=== PATIENT | male | born 1950 | race Caucasian/White ===

== ENCOUNTER 2019-12-10 14:28 | Outpatient (CLI) | payer MEDICARE, OTHER, SELFPAY ==
--- NOTE | 2019-12-10 14:32 | ECG_ITS ---
Measurements Intervals [place] Rate: 81 P: 199 MT: 206 QRS: 33 QRSD: 127 T: 32 QT: 410 QTc: 476 Interpretive Statements ELECTRONIC ATRIAL PACEMAKER INTRAVENTRICULAR CONDUCTION DELAY POOR R WAVE PROGRESSION, ANTERIOR LEADS BORDERLINE ST-T WAVE ABNORMALITY- INF/LAT LEADS BASELINE ARTIFACT- V6 BORDERLINE ECG Electronically Signed On 12-10-2019 14:56:49 CDT by Vel Jacobson D.O.
[2019-12-10 15:10] LABS: Blood Urea Nitrogen 24 mg/dL (9-20); Calcium 8.5 mg/dL (8.4-10.2); Carbon Dioxide 25 mmol/L (22-30); Chloride 105 mmol/L (98-107); Estimated Glomerular Filt Rate 40; Glucose 117 mg/dL (75-110); Potassium 4.3 mmol/L (3.4-5.0); Sodium 138 mmol/L (137-145)
== END 2019-12-10 14:29 | disposition home or self-care (01) ==
PROVIDERS: Anesthesiology; PCP Family Medicine; Visit Provider Urology
DX: N40.0 Benign prostatic hyperplasia without lower urinary tract symptoms (principal); Z95.0 Presence of cardiac pacemaker; Z79.899 Other long term (current) drug therapy
CPT/HCPCS: 36415; 80048; 87077; 87086; 87088; 87186; 93005

== ENCOUNTER 2019-12-16 00:07 | Outpatient (CLI) | payer MEDICARE, OTHER, SELFPAY ==
[2019-12-16 15:57] LABS: SARS-CoV-2 RNA PCR Negative
== END 2019-12-16 00:08 | disposition home or self-care (01) ==
LOC: ANHCOVIDDT 00:07
PROVIDERS: Visit Provider Urology
DX: Z01.818 Encounter for other preprocedural examination (principal); Z20.828 Contact with and (suspected) exposure to other viral communicable diseases
CPT/HCPCS: 87635; C9803; U0003

== ENCOUNTER 2019-12-30 00:08 | Outpatient (CLI) | payer MEDICARE, OTHER, SELFPAY ==
[2019-12-30 17:13] LABS: SARS-CoV-2 RNA PCR Negative
== END 2019-12-30 00:09 | disposition home or self-care (01) ==
LOC: ANHCOVIDDT 00:08
PROVIDERS: Visit Provider Urology
DX: Z20.828 Contact with and (suspected) exposure to other viral communicable diseases (principal); Z11.59 Encounter for screening for other viral diseases
CPT/HCPCS: 87635; C9803; U0003

== ENCOUNTER 2020-01-01 00:53 | Day surgery (SDC) | payer MEDICARE, OTHER, SELFPAY ==
[2019-12-10 08:24] VITALS: BMI 34.7
--- NOTE | 2019-12-25 12:59 | PC.NURSE ---
PT.STATES NO CHANGE IN HEALTH HX FROM 12/09/2019
--- NOTE | 2020-01-01 09:20 | WPDANESEPPF ---
Anes - Initial Pre Proc Eval Procedure: Operation Date: 01/01/20 12:00 Proposed Procedures p Urolift - Librado Spicer MD Date/Time: 01/01/20 09:20 Surgeon: Librado Spicer MD Pre Op Diagnosis: BPH Patient Data Age: 69 Gender: M Height: 1.75 m Weight: 106.59 kg Allergies Allergy/AdvReac Type Severity Reaction Status Date / Time No Known Allergies Allergy Verified 12/10/19 08:20 Home Medications Medication Instructions Recorded Confirmed Type amiodarone 200 mg PO DAILY 12/10/19 01/01/20 History apixaban [Eliquis] 2.5 mg PO BID 12/10/19 01/01/20 History furosemide 40 mg PO BID 12/10/19 01/01/20 History potassium chloride [Klor-Con M20] 20 meq PO BID 12/10/19 01/01/20 History sacubitril-valsartan [Entresto] 1 tablet PO BID 12/10/19 01/01/20 History spironolactone 25 mg PO DAILY 12/10/19 01/01/20 History tamsulosin 0.4 mg PO DAILY 12/10/19 01/01/20 History Patient hx anesthesia problems: none Family hx anesthesia problems: none PMFSH Past Medical History Medical History (Updated 01/01/20 @ 09:23 by Jovany Kelsey MD) BPH (benign prostatic hyperplasia) CAD (coronary artery disease) CKD (chronic kidney disease) stage 3, GFR 30-59 ml/min HTN (hypertension) Obesity Surgical History Surgical History (Updated 01/01/20 @ 09:22 by Jovany Kelsey MD) Hx of coronary artery bypass graft Mitral valve replaced PORCINE MITRAL VALVE S/P internal cardiac defibrillator procedure Social History Social History Gender identity (if verbalized by the patient): Male Anes - Eval Final PreProcedure Day of Procedure 01/01/20 09:20 Patient weight: obese Heart: regular rate and rhythm Lungs: clear to auscultation and normal air movement Airway: Mallampati scale class II Neurological: alert and oriented Last oral intake: >/= 8 hours ASA classification: III Emergent: no Anesthetic plan: proceed Anesthesia type and monitoring: general GIVS Informed Consent: The patient's anesthetic plan and its attendant risks and benefits were discussed with the patient/family/POA. Questions were solicited and answers provided to the satisfaction of the patient/family/POA.
[2020-01-01 10:53] VITALS: BP 126/97; PULSE 72; RESP 20; TEMP 36.8; O2SAT 97
[2020-01-01] MEDS: LACTATED RINGERS 1,000 ML 30 ML IV CONT (12:15)
--- NOTE | 2020-01-01 12:17 | WPDHPUPDATE1 ---
History and Physical Update Update Date/Time: 01/01/20 12:17 History and Physical has been reviewed, including an updated exam of the patient. There are NO changes in the patient's condition. Risks, benefits, and alternatives have been discussed and questions answered. Patient agrees to proceed with procedure.
[2020-01-01] MEDS: ceFAZolin 2 GM/D5W 50 ML 2 GM/50 ML BAG IVPB (12:21)
--- NOTE | 2020-01-01 12:24 | SUR.PREOP ---
FAMILY UPDATE PROVIDED
[2020-01-01] MEDS: LIDOCAINE HCL 2% GEL UROJET 10 ML PKG MUCOUS MEM (12:35)
[2020-01-01 13:02] VITALS: BP 123/75; PULSE 74; RESP 16; O2SAT 96
[2020-01-01 13:30] VITALS: BP 139/88; PULSE 73; RESP 16; O2SAT 97
[2020-01-01 14:00] VITALS: BP 143/90; PULSE 71; RESP 16
--- NOTE | 2020-01-01 22:53 | OP_ITS ---
DATE OF PROCEDURE: 01/01/2020 PREOPERATIVE DIAGNOSIS: Benign prostatic hypertrophy. POSTOPERATIVE DIAGNOSES: 1. Benign prostatic hypertrophy. 2. Fossa navicularis narrowing. PROCEDURES PERFORMED: 1. Cystoscopy. 2. Urethral dilation with Spencer sounds. 3. Prostatic urethral lift (UroLift x5 implants). DESCRIPTION OF PROCEDURE: Informed consent was obtained. The patient was taken to the operating room. He was given preoperative IV antibiotics. He was induced with anesthesia. He was placed in the dorsal lithotomy position. He was prepped and draped in a normal sterile fashion. We then placed a 20-Macedonian UroLift cystoscope. However, there was narrowing of the fossa navicularis. We therefore dilated using Spencer sounds from 16 to 24-Macedonian. At this point, we then inserted the cystoscope with ease through the urethra up to the prostatic urethra that revealed bilobar prostatic hyperplasia and then into the bladder. We then inserted the working element of the UroLift device. Our first treatment site was just proximal to the verumontanum on the left side. We compressed the tissue. We used trigger mechanism in order to deploy the needle and place a capsular tab end. We then moved the scope slowly toward midline keeping pressure and then deflated the urethral tab and sat nicely. We then performed another implant on the contralateral side. We then reinserted the visual obturator and then elected to place 2 additional implants 2.5 cm proximal to the bladder neck given the patient's intraprostatic protrusion of the cystoscopy. At this point, there was additional tissue in the left side, therefore a 5th implant was placed on the left. At this point, we had a nice continuous channel present. The tabs all sat nicely in the urethra with compression of the prostatic tissue. There was some bleeding from the prostate. We then exchanged to a flexible cystoscope. We retroflexed and did not note any urolift tabs in the bladder. Given mild bleeding, we did elect to place an 18-Macedonian Montgomery catheter that was left to gravity drainage. The patient was taken to recovery room in stable condition. IV FLUIDS: Per Anesthesia. COMPLICATIONS: None. ESTIMATED BLOOD LOSS: Minimal. FOLLOWUP: The patient will follow up in the office in 2-5 days for catheter removal. D I MT: Luis Miguel CRAIG
== END 2020-01-01 14:24 | disposition home or self-care (01) ==
PROVIDERS: PCP Family Medicine; Visit Provider Urology
PROC: 0T7D8DZ Dilation of Urethra with Intraluminal Device, Via Natural or Artificial Opening Endoscopic (ICD-10-PCS; CPT 52441; principal; 2020-01-01 12:00)
DX: N40.1 Benign prostatic hyperplasia with lower urinary tract symptoms (principal); N35.911 Unspecified urethral stricture, male, meatal; I25.10 Atherosclerotic heart disease of native coronary artery without angina pectoris; I12.9 Hypertensive chronic kidney disease with stage 1 through stage 4 chronic kidney disease, or unspecified chronic kidney disease; N18.3 Chronic kidney disease, stage 3 (moderate); Z79.01 Long term (current) use of anticoagulants; E66.9 Obesity, unspecified; Z68.36 Body mass index [BMI] 36.0-36.9, adult; Z95.3 Presence of xenogenic heart valve; Z95.810 Presence of automatic (implantable) cardiac defibrillator; Z95.1 Presence of aortocoronary bypass graft
CPT/HCPCS: C9740; 87635; A9270; C9803; J0131; J0690; J2250; J2704; J3010; J7120; L8699; U0003

== ENCOUNTER 2021-03-29 18:53 | Emergency (ER) | payer MEDICARE, OTHER, SELFPAY ==
--- NOTE | ~2021-03-29 | XR_ITS ---
EXAMINATION: XR knee LT 3V DATE: 03/29/2021 22:03 INDICATION: Left knee pain post injury TECHNIQUE: Anteroposterior, oblique and crosstable lateral views of the left knee were obtained COMPARISON: None. FINDINGS: Alignment is normal. No fracture. Joint spaces appear normal on nonweightbearing imaging. No joint e ffusion/layering lipohemarthrosis. Surgical clips at the medial side of the knee and a few scattered vascular calcifications. Soft tissues are otherwise unremarkable. IMPRESSION: 1. No left knee joint effusion or acute osseous abnormality. Reviewed, dictated and finalized at location A.
[2021-03-29 19:12] VITALS: BP 119/63; PULSE 76; RESP 16; TEMP 36.9; O2SAT 98
[2021-03-29 21:33] VITALS: BP 119/71; PULSE 96; RESP 20; O2SAT 95
--- NOTE | 2021-03-29 21:54 | ED.LOWEXIN ---
HPI - Extremity Injury (Lower) General Chief Complaint: Extremity Injury, Lower Stated Complaint: Fall L thigh pain Time Seen by Provider: 03/29/21 21:35 Source: patient Mode of arrival: ambulatory Limitations: no limitations History of Present Illness HPI Narrative: Patient is a 70-year-old male complaining of left knee pain after he slipped and fell try to get out of his truck. Patient states that his pain is mild, worse with movement. Patient was ambulatory after the fall. Patient denies any neck, chest, back, abdomen, pelvis or any extremity other pain/injury. Related Data Home Medications Medication Instructions Recorded Confirmed Eliquis 2.5 mg PO BID 12/10/19 01/01/20 Entresto 1 tablet PO BID 12/10/19 01/01/20 amiodarone 200 mg PO DAILY 12/10/19 01/01/20 furosemide 40 mg PO BID 12/10/19 01/01/20 potassium chloride [Klor-Con M20] 20 meq PO BID 12/10/19 01/01/20 spironolactone 25 mg PO DAILY 12/10/19 01/01/20 tamsulosin 0.4 mg PO DAILY 12/10/19 01/01/20 Allergies Allergy/AdvReac Type Severity Reaction Status Date / Time silver sulfadiazine Allergy Hives Verified 03/29/21 21:35 [From Maura] Review of Systems Review of Systems: All systems reviewed & are unremarkable except as noted in HPI and below Constitutional: Constitutional: Denies body ache(s), Denies chills, Denies excessive sweating, Denies fatigue, Denies fever(s), Denies headache(s), Denies lethargy, Denies malaise, Denies weakness and Denies weight loss Eyes: Eyes: Denies blurry vision, Denies change in vision and Denies loss of vision ENT: Denies dizziness, Denies ear discharge, Denies headache(s), Denies lip swelling, Denies epistaxis, Denies nasal congestion, Denies neck pain, Denies throat swelling and Denies tongue swelling Cardiovascular: Cardiovascular: Denies chest pain, Denies chest pain at rest, Denies chest pain with activity, Denies diaphoresis, Denies rapid heart rate, Denies edema, Denies irregular heart rhythm, Denies lightheadedness, Denies palpitations, Denies dyspnea and Denies dyspnea on exertion Respiratory: Respiratory: Denies chest congestion, Denies cough, Denies hemoptysis, Denies dyspnea and Denies dyspnea on exertion Gastrointestinal: Gastrointestinal: Denies abdominal pain, Denies melena, Denies hematochezia, Denies diarrhea, Denies nausea, Denies vomiting and Denies hematemesis Musculoskeletal: Musculoskeletal: Denies deformity, Denies neck pain and Denies numbness Neurologic: Denies Abnormal speech present, Denies abnormal gait, Denies confusion, Denies dizziness, Denies headache(s), Denies focal weakness, Denies loss of vision, Denies numbness, Denies Other visual disturbances, Denies Sensory deficit (Neuro) and Denies weakness Psychiatric: Psychiatric: Denies confusion, Denies depression, Denies auditory hallucinations, Denies homicidal ideation and Denies suicidal ideation Endocrine: Endocrine: Denies cold intolerance, Denies excessive sweating, Denies fatigue, Denies heat intolerance and Denies palpitations Hematologic/Lymphatic: Hematologic/Lymphatic: Denies easy bleeding and Denies easy bruising Allergic/Immunologic: Allergic/Immunologic: Denies lip swelling, Denies throat swelling and Denies tongue swelling PMFSH Past Medical History Medical History BPH (benign prostatic hyperplasia) CAD (coronary artery disease) CKD (chronic kidney disease) stage 3, GFR 30-59 ml/min HTN (hypertension) Obesity Surgical History Surgical History Hx of coronary artery bypass graft Mitral valve replaced PORCINE MITRAL VALVE S/P internal cardiac defibrillator procedure Social History Social History Gender identity (if verbalized by the patient): Male Comments Social history: Non-smoker, no EtOH or drug use Exam Const: General: no acute distress and
[2021-03-29 23:05] VITALS: BP 119/66; PULSE 90; RESP 14; O2SAT 98
== END 2021-03-29 23:05 | disposition home or self-care (01) ==
LOC: ANHED 22:49
PROVIDERS: Emergency Provider Emergency Medicine; PCP Family Medicine
DX: S86.912A Strain of unspecified muscle(s) and tendon(s) at lower leg level, left leg, initial encounter (principal); N40.0 Benign prostatic hyperplasia without lower urinary tract symptoms; I25.10 Atherosclerotic heart disease of native coronary artery without angina pectoris; I12.9 Hypertensive chronic kidney disease with stage 1 through stage 4 chronic kidney disease, or unspecified chronic kidney disease; N18.30 Chronic kidney disease, stage 3 unspecified; E66.9 Obesity, unspecified; Z68.39 Body mass index [BMI] 39.0-39.9, adult; Z95.1 Presence of aortocoronary bypass graft; Z95.3 Presence of xenogenic heart valve; Z79.01 Long term (current) use of anticoagulants; W17.89XA Other fall from one level to another, initial encounter
CPT/HCPCS: 73562; 99283

== ENCOUNTER 2024-01-22 12:00 | Outpatient (CLI) | payer MEDICARE, OTHER, SELFPAY ==
[2024-01-22 13:56] LABS: Anion Gap 6 mmol/L (4-12); Blood Urea Nitrogen 19 mg/dL (9-20); Calcium 8.6 mg/dL (8.4-10.2); Carbon Dioxide 31 mmol/L (22-30); Chloride 103 mmol/L (98-107); Estimated Glomerular Filt Rate 50; Glucose 97 mg/dL (65-110); Potassium 3.6 mmol/L (3.4-5.0); Sodium 140 mmol/L (137-145)
[2024-01-22 13:58] LABS: INR 1.1; Prothrombin Time 14.3 Seconds (11.1-14.7)
[2024-01-22 13:59] LABS: Partial Thromboplastin Time 26.9 Seconds (22.3-36.8)
[2024-01-22 14:00] LABS: Hemoglobin A1C 5.9 % (<5.7)
== END 2024-01-22 12:01 | disposition home or self-care (01) ==
PROVIDERS: Anesthesiology; PCP Family Medicine; Visit Provider Urology
DX: N52.9 Male erectile dysfunction, unspecified (principal); I12.9 Hypertensive chronic kidney disease with stage 1 through stage 4 chronic kidney disease, or unspecified chronic kidney disease; N18.30 Chronic kidney disease, stage 3 unspecified; Z01.818 Encounter for other preprocedural examination
CPT/HCPCS: 36415; 80048; 83036; 85610; 85730; 87086